=== PATIENT | female | born 1965 | race Caucasian/White ===

== ENCOUNTER 2020-08-30 23:40 | Outpatient (CLI) | payer OTHER, MEDICAID | END 2020-08-30 23:41 | disposition short-term general hospital (02) | LOC: EMS 23:40 | PROVIDERS: ATTEND Surgery | DX: R06.02 Shortness of breath (principal) | CPT/HCPCS: A0425; A0429 ==

== ENCOUNTER 2022-03-13 19:33 | Outpatient (CLI) | payer OTHER, MEDICAID | END 2022-03-13 19:34 | disposition short-term general hospital (02) | LOC: EMS 19:33 | DX: R06.02 Shortness of breath (principal); R06.2 Wheezing; R05.9 Cough, unspecified | CPT/HCPCS: A0425; A0427 ==

== ENCOUNTER 2022-12-02 15:45 | Outpatient (CLI) | payer OTHER, MEDICAID | END 2022-12-02 15:46 | disposition short-term general hospital (02) | LOC: EMS 15:45 | DX: R06.02 Shortness of breath (principal); R61 Generalized hyperhidrosis; R00.0 Tachycardia, unspecified; R45.1 Restlessness and agitation; U07.1 COVID-19 | CPT/HCPCS: A0425; A0427 ==